=== PATIENT | female | born 2000 | race Hispanic/Latino ===

== ENCOUNTER 2025-08-27 18:31 | Emergency (ER) | payer MEDICARE ==
[~2025-08-27] VITALS: Ht 162.6 cm; Wt 76.5 kg
[2025-08-27] MEDS: ONDANSETRON HCL INJ 2MG/ML 2ML 2 MG/ML VIAL IV STA (21:52)
[2025-08-27] MEDS: FAMOTIDINE 20 MG/2 ML VIAL IV STA (21:53)
[2025-08-27] MEDS: KETOROLAC TROMETHAMINE 30 MG/ML VIAL IV STA (21:54)
[2025-08-27 23:20] VITALS: PULSE 105; RESP 18; TEMP 98.4
[2025-08-27] MEDS ORDERED: ONDANSETRON ODT4 MG PO (23:30)
[2025-08-27] MEDS: DICYCLOMINE HCL 20 MG TAB PO ONE (23:35)
[2025-08-27] MEDS: SODIUM CHLORIDE 0.9% 1000ML 1,000 ML IV ONE (23:35)
[2025-08-28] MEDS ORDERED: ONDANSETRON HCL INJ 2MG/ML 2ML 2 MG/ML VIAL ONE (00:01)
[2025-08-28] MEDS: ONDANSETRON HCL INJ 2MG/ML 2ML 2 MG/ML VIAL IV STA (00:05)
[2025-08-28 00:30] VITALS: BP 111/56; PULSE 105; RESP 18; TEMP 98.4; O2SAT 98
== END 2025-08-28 00:30 | disposition home or self-care (01) ==
LOC: FSED 19:52
DX: R10.13 Epigastric pain (principal); K52.9 Noninfective gastroenteritis and colitis, unspecified; K80.20 Calculus of gallbladder without cholecystitis without obstruction; E86.0 Dehydration; E86.1 Hypovolemia; R11.2 Nausea with vomiting, unspecified; F84.0 Autistic disorder
CPT/HCPCS: 74176; 76705; 80048; 80076; 81003; 81025; 84484; 85025; 96374; 96375 ×2; 99284; J1308; J1885; J2405 ×2; J7030